=== PATIENT | male | born 1945 | race Caucasian/White ===

== ENCOUNTER 2023-04-08 20:21 | Emergency (ER) | payer MEDICARE, OTHER, SELFPAY ==
[2023-04-08 20:29] VITALS: BP 121/75; PULSE 76; RESP 18; TEMP 36.6; O2SAT 99; BMI 31.1
--- NOTE | 2023-04-08 20:47 | ED_ITS ---
HPI - General Adult General Chief complaint: Fall/Minor Trauma Stated complaint: Fell down the stairs Time Seen by Provider: 04/08/23 20:41 Source: patient Mode of arrival: ambulatory Limitations: no limitations History of Present Illness HPI narrative: 77-year-old male presenting today with face pain. Approximately 28 hours ago the patient missed a step going down the stairs and fell face forward. He denies headache, confusion. Denied losing consciousness yesterday. He presents today because the swelling around his eye has gotten worse. He denies neck or back pain that is acute. No changes in his vision, no ringing in his ears. Denies any focal neurologic deficits. He takes a daily aspirin, no other blood thinners. Related Data Home Medications Medication Instructions Recorded Confirmed aspirin 325 mg tablet,delayed 325 mg PO DAILY 04/08/23 04/08/23 release (Aspir-Tangela) atorvastatin 10 mg tablet 10 mg PO QPM 04/08/23 04/08/23 bupropion HCl 150 mg 24 hr tablet, 150 mg PO DAILY 04/08/23 04/08/23 extended release carvedilol 12.5 mg tablet 12.5 mg PO BID 04/08/23 04/08/23 cyclophosphamide 50 mg capsule 50 mg PO DAILY 04/08/23 04/08/23 glipizide 5 mg tablet, extended 5 mg PO DAILY 04/08/23 04/08/23 release 24 hr losartan 25 mg tablet 25 mg PO DAILY 04/08/23 04/08/23 melatonin 3 mg capsule 3 mg PO DAILY 04/08/23 04/08/23 metformin 500 mg tablet 500 mg PO BID 04/08/23 04/08/23 ondansetron HCl 8 mg tablet 8 mg PO DAILY 04/08/23 04/08/23 pantoprazole 40 mg tablet,delayed 40 mg PO DAILY 04/08/23 04/08/23 release prednisolone 1 %-moxifloxacin 0.5 drp ophthalmic (eye) 04/08/23 %-bromfenac 0.075 % eye drops susp spironolactone 25 mg tablet 25 mg PO DAILY 04/08/23 04/08/23 torsemide 20 mg tablet 40 mg PO DAILY 04/08/23 04/08/23 trazodone 50 mg tablet 50 mg PO QHS PRN 04/08/23 04/08/23 Allergies Allergy/AdvReac Type Severity Reaction Status Date / Time contrast dye Allergy Uncoded 04/08/23 20:37 Review of Systems Status of ROS: Reports: 10 or more systems reviewed and unremarkable except as noted in History and below [facility] Social History Smoking Status: Former smoker Do you use any of these nicotine containing products: None How often do you have a drink containing alcohol: 2-4 times a month How often do you have six or more drinks on one occasion: Never AUDIT-C Alcohol total score: 2 Non-prescribed substance use: denies use Exam Narrative: Exam Narrative: Well-nourished well-developed patient in no acute distress. Alert and oriented x3. Answers questions appropriately. Mood and affect are appropriate. Thoughts are goal oriented and rational. No tangential or magical thinking noted. Patient speaks in full sentences without needing to catch his breath. Speech is not slurred or pressured. GCS is 15. HEENT: Normocephalic. Pupils are equally round reactive to light. Extraocular muscles are intact. No pain with extraocular movement. Conjunctivae are moist without any icterus noted. Moist mucous membranes. Posterior pharynx is normal. Neck is soft without any lymphadenopathy or thyromegaly. No masses are appreciated. No evidence of trauma to the inside of the mouth. Patient has a large hematoma surrounding the right eye. He has bruising across the bridge of the nose that is very subtle and goes into the right side area below the eye again, this is quite subtle. There is no septal hematoma noted. No drainage from the nose. Hematoma over of the right forehead with very superficial abrasion. Cardiovascular: Heart is regular rate and rhythm S1 and S2 are present without any murmurs. Lungs: Clear to auscultation bilaterally no wheezes rhonchi or rales are appreciated. Patient takes deep breaths without any discomfort. Abdomen: Soft and nontender nondistended with normal bowel sounds. No guarding or rebound. Extremities: Bilateral lower extremities are without edema. Normal DP and PT pulses. Skin: Well perfused without any obvious rashes. He has scattered ecchymosis over the upper extremities. Very small ecchymosis over both knees. Back: Normal appearance. No tenderness to palpation over the cervical, thoracic or lumbar spine. Full range of motion at the neck with flexion, extension, side bending or rotation without pain. Const: Vital Signs, click to edit/add: Vital Signs - 24 hr 04/08/23 20:29 Temperature 98 F Pulse Rate [Pulse Oximeter] 76 Respiratory Rate 18 Blood Pressure [Ri ght Upper Arm] 121/75 Pulse Oximetry 99 Oxygen Delivery Me thod Room Air Course Course ED Course: Proceeded with facial and head CT: Unremarkable for any acute changes. Vital Signs Vital signs: Initial Vital Signs Temperature 98 F 04/08/23 20:29 Temperature Source Temporal Artery Scan 04/08/23 20:29 Pulse Rate 76 04/08/23 20:29 Respiratory Rate 18 04/08/23 20:29 Blood Pressure 121/75 04/08/23 20:29 Blood Pressure Mean 90 04/08/23 20:29 Blood Pressure Position Sitting 04/08/23 20:29 Pulse Oximetry 99 04/08/23 20:29 Oxygen Delivery Method Room Air 04/08/23 20:29 Vital Signs Temperature 98 F 04/08/23 20:29 Pulse Rate 76 04/08/23 20:29 Respiratory Rate 18 04/08/23 20:29 Blood Pressure 121/75 04/08/23 20:29 Pulse Oximetry 99 04/08/23 20:29 Oxygen Delivery Method Room Air 04/08/23 20:29 Temperature 98 F 04/08/23 20:29 Pulse Rate 76 04/08/23 20:29 Respiratory Rate 18 04/08/23 20:29 Blood Pressure 121/75 04/08/23 20:29 Pulse Oximetry 99 04/08/23 20:29 Oxygen Delivery Method Room Air 04/08/23 20:29 Medical Decision Making MDM Narrative Medical decision making narrative: 77-year-old male status post fall with facial hematoma, no evidence of underlying fractures or brain injury. We discussed symptomatic treatment, progression of facial ecchymosis and hematoma, and reasons for follow-up. Imaging Data CT facial bones: Attestation: I have reviewed the pertinent imaging results. Radiologist's impression: CT head and maxillofacial without contrast. Permanently recorded images are archived. COMPARISON: None. FINDINGS: CSF spaces: Within normal limits for age. Brain parenchyma and extra-axial spaces: Mild global brain parenchymal volume loss. Mild areas of bilateral supratentorial white matter hypoattenuation, consistent with chronic small vessel ischemic disease. The zurita-white differentiation is normal. No sign of mass, hemorrhage, or midline shift. No extra-axial fluid collection. Bones: No fractures or bone lesions. Specifically the nasal bones, temporomandibular joints, maxilla and mandible appear intact. No skull fracture. Multilevel degenerative changes of the cervical spine. Orbits and globes: The globes are intact. No intraorbital hemorrhage or emphysema. Sinuses: The visualized paranasal sinuses demonstrate no acute or significant findings. The mastoid air cells are clear. Soft tissues: Small right parietal scalp lipoma. Right frontal scalp and periorbital soft tissue hematoma. IMPRESSION: No evidence of an acute intracranial abnormality. Right frontal scalp and periorbital soft tissue hematoma. No underlying skull or maxillofacial fracture. Brain parenchyma findings consistent with chronic small vessel ischemic disease on a background of age-related involutional change. Discharge Plan Discharge Clinical Impression: Blunt trauma of face, Facial hematoma Patient Disposition: Home, Self-Care Condition: Stable Additional Instructions: Ice face as needed for comfort and swelling-no longer than 20 minutes at a time. Do not apply ice directly to skin. Expect hematomas to stay for several months before they are completely healed. Prescriptions: No Action metformin 500 mg tablet 500 mg PO BID carvedilol 12.5 mg tablet 12.5 mg PO BID torsemide 20 mg tablet 40 mg PO DAILY atorvastatin 10 mg tablet 10 mg PO QPM glipizide 5 mg tablet extended release 24hr 5 mg PO DAILY spironolactone 25 mg tablet 25 mg PO DAILY pantoprazole 40 mg tablet,delayed release (DR/EC) 40 mg PO DAILY losartan 25 mg tablet 25 mg PO DAILY bupropion HCl 150 mg tablet extended release 24 hr 150 mg PO DAILY aspirin [Aspir-Tangela] 325 mg tablet,delayed release (DR/EC) 325 mg PO DAILY cyclophosphamide 50 mg capsule 50 mg PO DAILY melatonin 3 mg capsule 3 mg PO DAILY ondansetron HCl 8 mg tablet 8 mg PO DAILY [id number]-nvsrkaa 1-0.5-0.075 % drops,suspension ophthalmic (eye) trazodone 50 mg tablet 50 mg PO QHS PRN Follow Up/Referrals: Provider,Not a Local [Primary Care Provider] - Stand Alone Forms: [facility] Info Instructions
--- NOTE | 2023-04-08 20:47 | CRLHL7_ITS ---
For Patients: As a result of the Century Cures Act, medical imaging exams and procedure reports are released immediately into your electronic medical record. You may view this report before your referring provider. If you have questions, please contact your health care provider. INDICATION: Fell, hit face TECHNIQUE: CT head and maxillofacial without contrast. Permanently recorded images are archived. COMPARISON: None. FINDINGS: CSF spaces: Within normal limits for age. Brain parenchyma and extra-axial spaces: Mild global brain parenchymal volume loss. Mild areas of bilateral supratentorial white matter hypoattenuation, consistent with chronic small vessel ischemic disease. The zurita-white differentiation is normal. No sign of mass, hemorrhage, or midline shift. No extra-axial fluid collection. Bones: No fractures or bone lesions. Specifically the nasal bones, temporomandibular joints, maxilla and mandible appear intact. No skull fracture. Multilevel degenerative changes of the cervical spine. Orbits and globes: The globes are intact. No intraorbital hemorrhage or emphysema. Sinuses: The visualized paranasal sinuses demonstrate no acute or significant findings. The mastoid air cells are clear. Soft tissues: Small right parietal scalp lipoma. Right frontal scalp and periorbital soft tissue hematoma. IMPRESSION: No evidence of an acute intracranial abnormality. Right frontal scalp and periorbital soft tissue hematoma. No underlying skull or maxillofacial fracture. Brain parenchyma findings consistent with chronic small vessel ischemic disease on a background of age-related involutional change. Please note that all CT scans at this facility use dose modulation, iterative reconstruction, and/or weight-based dosing when appropriate to reduce radiation dose to as low as reasonably achievable. Dictated by Garret Parada MD @ 04/08/2023 10:25:53 PM (Electronically Signed)
== END 2023-04-08 23:02 | disposition home or self-care (01) ==
PROVIDERS: Emergency Provider Family Medicine
DX: S00.93XA Contusion of unspecified part of head, initial encounter (principal); W10.9XXA Fall (on) (from) unspecified stairs and steps, initial encounter
CPT/HCPCS: 70450; 70486; 99284

== ENCOUNTER 2023-06-30 17:32 | Emergency (ER) | payer MEDICARE, OTHER, SELFPAY ==
[2023-06-30 18:07] VITALS: BP 134/87; PULSE 67; RESP 16; TEMP 36.7; O2SAT 96; BMI 30.8
--- NOTE | 2023-06-30 18:18 | CRLHL7_ITS ---
For Patients: As a result of the Century Cures Act, medical imaging exams and procedure reports are released immediately into your electronic medical record. You may view this report before your referring provider. If you have questions, please contact your health care provider. INDICATION: Fall, head injury, history of cutaneous melanoma. TECHNIQUE: Noncontrast CT of the head with multiplanar reformat in bone and soft tissue algorithms. COMPARISON: None available. FINDINGS: No acute intracranial hemorrhage. The zurita-white matter interface is preserved. No evidence of ventricular obstruction. Mild diffuse parenchymal volume loss. Small left frontal scalp laceration. No radiopaque foreign body or underlying calvarial fracture. Evidence of prior cataract surgery. Paranasal sinuses and mastoid air cells are predominantly clear. IMPRESSION: 1. No acute intracranial abnormality. 2. Small left frontal scalp laceration. No radiopaque foreign body or underlying calvarial fracture Please note that all CT scans at this facility use dose modulation, iterative reconstruction, and/or weight-based dosing when appropriate to reduce radiation dose to as low as reasonably achievable. Dictated by Yung Whitlock MD @ 06/30/2023 7:14:39 PM (Electronically Signed)
--- NOTE | 2023-06-30 18:24 | ED_ITS ---
HPI - Fall General Time Seen by Provider: 18:24 Date Seen: 06/30/23 Chief Complaint: Fall/Minor Trauma Stated Complaint: Fall, head lac Time Seen by Provider: 06/30/23 18:23 Source: patient and RN notes reviewed Mode of arrival: ambulatory Limitations: no limitations History of Present Illness HPI Narrative: Patient is an 78-year-old male that comes in accompanied by family. He fell in the kitchen, hitting his left side of his head in the parietal area on the drawer. His daughter notes that she feels he either caught his foot on the rug or actually tripped on his own foot. He denies any syncopal or presyncopal issues. He had no chest pain, was not passing out. He did not lose consciousness, denies headache, denies any significant pain of his head. He is mildly sore in the area but only mildly so. No neck or back pain, difficulty breathing, no chest wall pain, no arm or leg pain. Nothing else was injured. He did bleed on this left side of his head, bleeding has stopped at this time. He and his both just recently had there tetanus vaccines updated. 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 They report that his hemoglobin recently was low, platelet sometimes are low but is not had any bleeding complications. Is not on any blood thinner outside of an aspirin. MD complaint: fall Related Data Home Medications Medication Instructions Recorded Confirmed aspirin 325 mg tablet,delayed 325 mg PO DAILY 04/08/23 04/08/23 release (Aspir-Tangela) atorvastatin 10 mg tablet 10 mg PO QPM 04/08/23 04/08/23 bupropion HCl 150 mg 24 hr tablet, 150 mg PO DAILY 04/08/23 04/08/23 extended release carvedilol 12.5 mg tablet 12.5 mg PO BID 04/08/23 04/08/23 cyclophosphamide 50 mg capsule 50 mg PO DAILY 04/08/23 04/08/23 glipizide 5 mg tablet, extended 5 mg PO DAILY 04/08/23 04/08/23 release 24 hr losartan 25 mg tablet 25 mg PO DAILY 04/08/23 04/08/23 melatonin 3 mg capsule 3 mg PO DAILY 04/08/23 04/08/23 metformin 500 mg tablet 500 mg PO BID 04/08/23 04/08/23 ondansetron HCl 8 mg tablet 8 mg PO DAILY 04/08/23 04/08/23 pantoprazole 40 mg tablet,delayed 40 mg PO DAILY 04/08/23 04/08/23 release prednisolone 1 %-moxifloxacin 0.5 drp ophthalmic (eye) 04/08/23 %-bromfenac 0.075 % eye drops susp spironolactone 25 mg tablet 25 mg PO DAILY 04/08/23 04/08/23 torsemide 20 mg tablet 40 mg PO DAILY 04/08/23 04/08/23 trazodone 50 mg tablet 50 mg PO QHS PRN 04/08/23 04/08/23 Allergies Allergy/AdvReac Type Severity Reaction Status Date / Time contrast dye Allergy Uncoded 04/08/23 20:37 Review of Systems Status of ROS: Reports: 6 or more systems reviewed and unremarkable except as noted in History and below [facility] Social History Smoking Status: Former smoker Do you use any of these nicotine containing products: None How often do you have a drink containing alcohol: 2-4 times a month How often do you have six or more drinks on one occasion: Never AUDIT-C Alcohol total score: 2 Non-prescribed substance use: denies use Exam Const: Vital Signs, click to edit/add: Vital Signs - 24 hr 06/30/23 18:07 Temperature 98.1 F Pulse Rate [Right Pulse Oximeter] 67 Respiratory Rate 16 Blood Pressure [Ri ght Upper Arm] 134/87 Pulse Oximetry 96 Oxygen Delivery Me thod Room Air Patient is alert, interactive, no apparent distress, sitting up in a wheelchair. He has dry blood on the left side of his scalp. Cannot see exactly where the wound is, no active bleeding. External ears normal, face is atraumatic, speaking in complete sentences. No midline tenderness over his neck, neck is supple without any pain on range of motion. Lungs are clear, good air entry no wheezing or crackles noted. CV regular rate and rhythm, no murmur, normal S1-S2 no S3-S4. Abdomen is soft, states it is not tender. He moves his arms, uses legs, no focal weakness noted. He states there is no pain within his extremities. Documenting provider has reviewed patient's vital signs: yes Course Course ED Course: Patient will have CT imaging of his head to ensure no fracture or acute intracranial abnormality. He is currently hemodynamically stable, no active bleeding. Tetanus is up-to-date. When he returns from a CT imaging, lab staff clean this left side of his head, see where the wound is that he might need to clean. It is not apparent exactly where the wound is at this time with all the dried blood. Reevaluation(s) Time of Reevaluation #1: 20:11 Reevaluation #1: Completed laceration repair. Did review with him the negative head CT imaging. He has a small little stellate laceration that is on the left parietal area. More centrally in top of the head, small area of abraded skin with there is a little deficit that is oozing. About 3.5 mL of the 5 mL of 1% lidocaine with epinephrine that was drawn up was used for local infiltration. There is good white need of the tissue, did help with hemostasis. 3 simple interrupted sutures over the small stellate area were placed, total wound length was likely just under a cm. There was good approximation of wound and hemostasis. One overlying suture was placed where there was little skin deficit to try to get some of the tissue together. This did give better approximation of the tissue deficit and seem to bring hemostasis about. Patient tolerated this well, no complications. Total of 4 simple interrupted sutures were placed using 4-0 Prolene. Will have nursing staff put a bandage on and prepare for discharge. Tetanus is up-to-date. Vital Signs Vital signs: Initial Vital Signs Temperature 98.1 F 06/30/23 18:07 Temperature Source Temporal Artery Scan 06/30/23 18:07 Pulse Rate 67 06/30/23 18:07 Pulse Rhythm Regular 06/30/23 18:07 Respiratory Rate 16 06/30/23 18:07 Blood Pressure 134/87 06/30/23 18:07 Blood Pressure Mean 102 06/30/23 18:07 Blood Pressure Position Sitting 06/30/23 18:07 Pulse Oximetry 96 06/30/23 18:07 Oxygen Delivery Method Room Air 06/30/23 18:07 Vital Signs Temperature 98.1 F 06/30/23 18:07 Pulse Rate 67 06/30/23 18:07 Respiratory Rate 16 06/30/23 18:07 Blood Pressure 134/87 06/30/23 18:07 Pulse Oximetry 96 06/30/23 18:07 Oxygen Delivery Method Room Air 06/30/23 18:07 Temperature 98.1 F 06/30/23 18:07 Pulse Rate 67 06/30/23 18:07 Respiratory Rate 16 06/30/23 18:07 Blood Pressure 134/87 06/30/23 18:07 Pulse Oximetry 96 06/30/23 18:07 Oxygen Delivery Method Room Air 06/30/23 18:07 MDM - Fall Imaging Data CT scan - head: Attestation: I have reviewed the pertinent imaging results. Radiologist's impression: Patient: MOHSEN GAITAN Facility:?[facility] Patient ID:?[id number] Site Patient ID:?[id number]. Site :?[id number] Study:?CT Head WO-06/30/2023 6:39:25 PM Ordering Physician:Panfilo Nolasco Final Report: INDICATION: Fall, head injury, history of cutaneous melanoma. TECHNIQUE: Noncontrast CT of the head with multiplanar reformat in bone and soft tissue algorithms. COMPARISON: None available. FINDINGS: No acute intracranial hemorrhage. The zurita-white matter interface is preserved. No evidence of ventricular obstruction. Mild diffuse parenchymal volume loss. Small left frontal scalp laceration. No radiopaque foreign body or underlying calvarial fracture. Evidence of prior cataract surgery. Paranasal sinuses and mastoid air cells are predominantly clear. IMPRESSION: 1. No acute intracranial abnormality. 2. Small left frontal scalp laceration. No radiopaque foreign body or underlying calvarial fracture Please note that all CT scans at this facility use dose modulation, iterative reconstruction, and/or weight-based dosing when appropriate to reduce radiation dose to as low as reasonably achievable. Dictated by Yung Whitlock MD @ 06/30/2023 7:14:39 PM ----- ADDENDUM ----- Addendum : Please note that comparison study is available dated 04/08/2023. Mild diffuse parenchymal volume loss is unchanged. Dictated by Yung Whitlock MD @ Jun 30 2023 7:15PM (Electronic Signature) Discharge Plan Discharge Clinical Impression: Fall Qualifiers: Encounter type: initial encounter Qualified Code(s): W19.XXXA - Unspecified fall, initial encounter Laceration of scalp Qualifiers: Encounter type: initial encounter Qualified Code(s): S01.01XA - Laceration without foreign body of scalp, initial encounter Patient Disposition: Home, Self-Care Condition: Stable Instructions: Care For Your Stitches (DC), Laceration (ED), Fall Prevention for Older Adults (ED) Additional Instructions: May shower but be careful to not disrupt the stitches with washing or combing. Stitches need to come out in about 1 weeks time, seek clinic appointment for wound assessment for suture removal. If there is concern for infection with increasing redness, swelling, purulent discharge or associated fever with the skin changes, do need to be re-evaluated. Can use a little bacitracin to the stitches and bandages until sutures are removed. Activity Level: Activity as Tolerated Prescriptions: No Action metformin 500 mg tablet 500 mg PO BID carvedilol 12.5 mg tablet 12.5 mg PO BID torsemide 20 mg tablet 40 mg PO DAILY atorvastatin 10 mg tablet 10 mg PO QPM glipizide 5 mg tablet extended release 24hr 5 mg PO DAILY spironolactone 25 mg tablet 25 mg PO DAILY pantoprazole 40 mg tablet,delayed release (DR/EC) 40 mg PO DAILY losartan 25 mg tablet 25 mg PO DAILY bupropion HCl 150 mg tablet extended release 24 hr 150 mg PO DAILY aspirin [Aspir-Tangela] 325 mg tablet,delayed release (DR/EC) 325 mg PO DAILY cyclophosphamide 50 mg capsule 50 mg PO DAILY melatonin 3 mg capsule 3 mg PO DAILY ondansetron HCl 8 mg tablet 8 mg PO DAILY [id number]-qtzwrrb 1-0.5-0.075 % drops,suspension ophthalmic (eye) trazodone 50 mg tablet 50 mg PO QHS PRN Follow Up/Referrals: Provider,Not a Local [Primary Care Provider] - Stand Alone Forms: [employer] Info Instructions
[2023-06-30 20:30] VITALS: BP 140/81; PULSE 59; O2SAT 97
--- NOTE | 2023-06-30 20:44 | PC.NURSE ---
Written and verbal D/C per MD and RN. Dsg C/D/I top of head. Bacitracin and bandaides providewd to family. All c
== END 2023-06-30 20:50 | disposition home or self-care (01) ==
PROVIDERS: Emergency Provider Family Medicine
DX: S01.01XA Laceration without foreign body of scalp, initial encounter (principal); W01.0XXA Fall on same level from slipping, tripping and stumbling without subsequent striking against object, initial encounter
CPT/HCPCS: 12001; 70450; 99283

== ENCOUNTER 2024-11-20 10:01 | Emergency (ER) | payer MEDICARE, OTHER, SELFPAY ==
[2024-11-20 10:35] VITALS: BP 109/63; PULSE 65; RESP 18; TEMP 36.6; O2SAT 97; BMI 31.7
--- NOTE | 2024-11-20 12:09 | ED.GENADULT ---
HPI - General Adult General Time Seen by Provider: 12:09 <Constance Espinoza MD - Last Filed: 11/20/24 12:10> Date Seen: 11/20/24 <Constance Espinoza MD - Last Filed: 11/20/24 12:10> Chief complaint: Extremity Pain/Injury, Lower <Constance Espinoza MD - Last Filed: 11/20/24 12:10> Stated complaint: uncontrollable left leg- fell <Constance Espinoza MD - Last Filed: 11/20/24 12:10> Time Seen by Provider: 11/20/24 11:01 <Constance Espinoza MD - Last Filed: 11/20/24 12:10> Source: patient and RN notes reviewed <Constance Espinoza MD - Last Filed: 11/20/24 12:10> Mode of arrival: ambulatory <Constance Espinoza MD - Last Filed: 11/20/24 12:10> Limitations: no limitations <Constance Espinoza MD - Last Filed: 11/20/24 12:10> History of Present Illness HPI narrative: Patient reports that for the past several weeks he has noted weakness with shaking in right knee when he gets up from a sitting position and sometimes noted when in standing position. Denies pain. This happened today and resulted in a fall. 79-year-old man presenting to the emergency department with concern of shaking in his right leg. 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 Had a pretty normal lab draw about 3 weeks ago and is due for a follow-up appointment in 1 week. Over period of months has been having episodes where he will go to get out of a chair and the right knee/leg will start shaking and then he can feel weaker in lightheaded generally in his body. This can admittedly occur independent of stress on his legs but maybe when he standing and he knows he has to go sit down. Today however seemed to then also involve his left leg and he ended up falling. Knocked his right elbow but otherwise no injuries were sustained. He is not anticoagulated with anything other than aspirin. Underlying history of diabetes as well. No history of seizures. Not complaining of any headaches. Does not describe postictal behavior. No underlying neuromuscular disorders otherwise. No Parkinson's. Says this is just weird and does not know where to go from here. 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 Denies any exposures. Denies any pain in the knee otherwise. <Marcio Dominguez MD - Last Filed: 11/24/24 11:52> Related Data Home medications: Home Medications ?Medication ?Instructions ?Recorded ?Confirmed atorvastatin 10 mg tablet 10 mg PO QPM 04/08/23 04/08/23 carvedilol 12.5 mg tablet 12.5 mg PO BID 04/08/23 11/20/24 cyclophosphamide 50 mg capsule 50 mg PO DAILY 04/08/23 11/20/24 glipizide 5 mg tablet, extended 5 mg PO DAILY 04/08/23 11/20/24 release 24 hr losartan 25 mg tablet 25 mg PO DAILY 04/08/23 11/20/24 melatonin 3 mg capsule 3 mg PO DAILY 04/08/23 11/20/24 Held on 11/20/24. Instructions: not taking metformin 500 mg tablet 500 mg PO BID 04/08/23 11/20/24 ondansetron HCl 8 mg tablet 8 mg PO DAILY 04/08/23 11/20/24 pantoprazole 40 mg tablet,delayed 40 mg PO DAILY 04/08/23 11/20/24 release prednisolone 1 %-moxifloxacin 0.5 drp ophthalmic (eye) 04/08/23 %-bromfenac 0.075 % eye drops susp torsemide 20 mg tablet 40 mg PO DAILY 04/08/23 11/20/24 eplerenone 25 mg tablet 25 mg PO DAILY 11/20/24 11/20/24 <Constance Espinoza MD - Last Filed: 11/20/24 12:10> Allergies/adverse reactions: Allergies Allergy/AdvReac Type Severity Reaction Status Date / Time iodine Allergy Rash Verified 11/20/24 10:31 <Constance Espinoza MD - Last Filed: 11/20/24 12:10> Review of Systems Status of ROS: Reports: 6 or more systems reviewed and unremarkable except as noted in History and below <Marcio Dominguez MD - Last Filed: 11/24/24 11:52> PFS PFSH Social History: Social History Smoking Status: Former smoker Do you use any of these nicotine containing products: None How often do you have a drink containing alcohol: 2-4 times a month How often do you have six or more drinks on one occasion: Never AUDIT-C Alcohol total score: 2 Non-prescribed substance use: denies use <Constance Espinoza MD - Last Filed: 11/20/24 12:10> Exam Narrative: Exam Narrative: Very pleasant. Speaking fluidly easily. Breathing easily. Lungs are clear. Heart in regular rate and rhythm without murmur rub or gallop. Distant. Abdomen is overweight. Moving all extremities without difficulty. There is mild lower extremity pitting edema. Is well-perfused. Examination of the right knee is without particular swelling other than what looks like maybe a lipomatous swelling over the patella. No laxity. <Marcio Dominguez MD - Last Filed: 11/24/24 11:52> Const: Vital Signs, click to edit/add: Vital Signs - 24 hr 11/20/24 10:35 11/20/24 12:53 11/20/24 13:30 Temperature 97.9 F Pulse Rate 67 Pulse Rate [Pulse Oximeter] 65 Pulse Rate [orthos tatic lying Pulse Oximeter] 57 L Pulse Rate [orthos tatic sitting] 64 Pulse Rate [orthos tatic standing Pul se Oximeter] 82 Respiratory Rate 18 Blood Pressure Blood Pressure [Ri ght Upper Arm] 109/63 Blood Pressure [or thostatic lying Le ft Arm] 128/75 Blood Pressure [or thostatic sitting Left Arm] 124/73 Blood Pressure [or thostatic standing Left Arm] 117/74 Pulse Oximetry 97 97 Oxygen Delivery Me thod Room Air 11/20/24 14:31 11/20/24 14:32 Temperature Pulse Rate 66 66 Pulse Rate [Pulse Oximeter] Pulse Rate [orthos tatic lying Pulse Oximeter] Pulse Rate [orthos tatic sitting] Pulse Rate [orthos tatic standing Pul se Oximeter] Respiratory Rate Blood Pressure 136/74 Blood Pressure [Ri ght Upper Arm] Blood Pressure [or thostatic lying Le ft Arm] Blood Pressure [or thostatic sitting Left Arm] Blood Pressure [or thostatic standing Left Arm] Pulse Oximetry 98 98 Oxygen Delivery Me thod <Constance Espinoza MD - Last Filed: 11/20/24 12:10> Vital Signs, click to edit/add: Vital Signs - 24 hr 11/20/24 10:35 11/20/24 12:53 11/20/24 13:30 Temperature 97.9 F Pulse Rate 67 Pulse Rate [Pulse Oximeter] 65 Pulse Rate [orthos tatic lying Pulse Oximeter] 57 L Pulse Rate [orthos tatic sitting] 64 Pulse Rate [orthos tatic standing Pul se Oximeter] 82 Respiratory Rate 18 Blood Pressure Blood Pressure [Ri ght Upper Arm] 109/63 Blood Pressure [or thostatic lying Le ft Arm] 128/75 Blood Pressure [or thostatic sitting Left Arm] 124/73 Blood Pressure [or thostatic standing Left Arm] 117/74 Pulse Oximetry 97 97 Oxygen Delivery Me thod Room Air 11/20/24 14:31 11/20/24 14:32 Temperature Pulse Rate 66 66 Pulse Rate [Pulse Oximeter] Pulse Rate [orthos tatic lying Pulse Oximeter] Pulse Rate [orthos tatic sitting] Pulse Rate [orthos tatic standing Pul se Oximeter] Respiratory Rate Blood Pressure 136/74 Blood Pressure [Ri ght Upper Arm] Blood Pressure [or thostatic lying Le ft Arm] Blood Pressure [or thostatic sitting Left Arm] Blood Pressure [or thostatic standing Left Arm] Pulse Oximetry 98 98 Oxygen Delivery Me thod <Marcio Dominguez MD - Last Filed: 11/24/24 11:52> Documenting provider has reviewed patient's vital signs: yes <Marcio Dominguez MD - Last Filed: 11/24/24 11:52> Course Vital Signs Vital signs: Initial Vital Signs Temperature 97.9 F 11/20/24 10:35 Temperature Source Temporal Artery Scan 11/20/24 10:35 Pulse Rate 65 11/20/24 10:35 Respiratory Rate 18 11/20/24 10:35 Blood Pressure 109/63 11/20/24 10:35 Blood Pressure Mean 78 11/20/24 10:35 Pulse Oximetry 97 11/20/24 10:35 Oxygen Delivery Method Room Air 11/20/24 10:35 Vital Signs Temperature 97.9 F 11/20/24 10:35 Pulse Rate 65 11/20/24 10:35 Respiratory Rate 18 11/20/24 10:35 Blood Pressure 109/63 11/20/24 10:35 Pulse Oximetry 97 11/20/24 10:35 Oxygen Delivery Method Room Air 11/20/24 10:35 Temperature 97.9 F 11/20/24 10:35 Pulse Rate 66 11/20/24 14:32 Respiratory Rate 18 11/20/24 10:35 Blood Pressure 136/74 11/20/24 14:31 Pulse Oximetry 98 11/20/24 14:32 Oxygen Delivery Method Room Air 11/20/24 10:35 <Constance Espinoza MD - Last Filed: 11/20/24 12:10> Initial Vital Signs Temperature 97.9 F 11/20/24 10:35 Temperature Source Temporal Artery Scan 11/20/24 10:35 Pulse Rate 65 11/20/24 10:35 Respiratory Rate 18 11/20/24 10:35 Blood Pressure 109/63 11/20/24 10:35 Blood Pressure Mean 78 11/20/24 10:35 Pulse Oximetry 97 11/20/24 10:35 Oxygen Delivery Method Room Air 11/20/24 10:35 Vital Signs Temperature 97.9 F 11/20/24 10:35 Pulse Rate 65 11/20/24 10:35 Respiratory Rate 18 11/20/24 10:35 Blood Pressure 109/63 11/20/24 10:35 Pulse Oximetry 97 11/20/24 10:35 Oxygen Delivery Method Room Air 11/20/24 10:35 Temperature 97.9 F 11/20/24 10:35 Pulse Rate 66 11/20/24 14:32 Respiratory Rate 18 11/20/24 10:35 Blood Pressure 136/74 11/20/24 14:31 Pulse Oximetry 98 11/20/24 14:32 Oxygen Delivery Method Room Air 11/20/24 10:35 <Marcio Dominguez MD - Last Filed: 11/24/24 11:52> Medications Administered Medications: Discontinued Medications Generic Name Dose Route Start Last Admin Trade Name Freq PRN Reason Stop Dose Admin Diphenhydramine HCl 50 mg 11/20/24 14:02 11/20/24 14:15 Diphenhydramine 50 Mg/Ml Inj IVP 11/20/24 14:03 50 mg ONCE ONE Administration Hydrocortisone Sodium Succinate 200 mg 11/20/24 14:02 11/20/24 14:32 Hydrocortisone Sod Succinate 50 Mg/Ml Inj IVP 11/20/24 14:03 200 mg ONCE ONE Administration Sodium Chloride 500 mls @ 500 mls/hr 11/20/24 13:16 11/20/24 14:32 0.9 % Sodium Chloride 500 Ml IV 11/20/24 14:15 Infused .Q1H ONE Infusion <Constance Espinoza MD - Last Filed: 11/20/24 12:10> Discontinued Medications Generic Name Dose Route Start Last Admin Trade Name Freq PRN Reason Stop Dose Admin Diphenhydramine HCl 50 mg 11/20/24 14:02 11/20/24 14:15 Diphenhydramine 50 Mg/Ml Inj IVP 11/20/24 14:03 50 mg ONCE ONE Administration Hydrocortisone Sodium Succinate 200 mg 11/20/24 14:02 11/20/24 14:32 Hydrocortisone Sod Succinate 50 Mg/Ml Inj IVP 11/20/24 14:03 200 mg ONCE ONE Administration Sodium Chloride 500 mls @ 500 mls/hr 11/20/24 13:16 11/20/24 14:32 0.9 % Sodium Chloride 500 Ml IV 11/20/24 14:15 Infused .Q1H ONE Infusion <Marcio Dominguez MD - Last Filed: 11/24/24 11:52> Medical Decision Making MDM Narrative Medical decision making narrative: One wonders if this might be simply a strange physical stress response. Partial seizure? Strange recruitment behavior. Does not seem to be an arrhythmia. No history of neuromuscular disorder or Parkinson's. Might be describing some vasovagal episode? I did discuss this case with neuro/Stroke Neuro on-call. They do have concern of potential limb shaking TIA. Recommending for orthostatics and vascular imaging of head and neck. Orthostatics were unremarkable. IV was placed. Given IV hydration. Required pre treatment for iodine allergy. INDICATION: Acute stroke. TECHNIQUE: CTA head with contrast bolus tracking, 3D angiographic rendering using maximum intensity projection (MIP) and images permanently archived. FINDINGS: There is scattered intracranial atherosclerotic disease. There is normal opacification of the intracranial vasculature. There is no large vessel occlusion. No aneurysm is identified. IMPRESSION: No large vessel occlusion. Please note that all CT scans at this facility use dose modulation, iterative reconstruction, and/or weight-based dosing when appropriate to reduce radiation dose to as low as reasonably achievable. Dictated by Roosevelt Card MD @ 11/21/2024 9:51:56 AM INDICATION: Acute stroke. TECHNIQUE: CTA neck with contrast bolus tracking, 3D angiographic rendering using maximum intensity projection (MIP) and images permanently archived. FINDINGS: There is carotid atherosclerosis. There is no significant carotid artery stenosis or dissection. There is no significant vertebral artery stenosis or dissection. Indeterminate thyroid nodules are incidentally noted. Advanced degenerative changes are noted in the cervical spine. IMPRESSION: No significant carotid or vertebral artery stenosis or dissection. Please note that all CT scans at this facility use dose modulation, iterative reconstruction, and/or weight-based dosing when appropriate to reduce radiation dose to as low as reasonably achievable. Dictated by Roosevelt Card MD @ 11/21/2024 9:50:39 AM Discussed findings, or lack of, with Stroke Neuro. Doubtful TIA given absence of findings. With unusual presentation would still recommend MRI. Will be unable to do this MRI at this point. Will be attempting to arrange this as an outpatient. Actually should not require pretreatment of contrast per my later conversation with our radiology department. No further events during time in the emergency department. Looking forward to leaving the emergency department after a long visit. See patient discharge plan for further discussion Please enjoy your supper. I am placing an order for an MRI of your brain. If you choose to get this elsewhere that is certainly fine, I just can not order it. We are hoping to do an MRI of your brain with and without contrast. Of course you will require premedication again. I will place that order here today after you leave. We will contact you about scheduling this. Please discuss these episodes with your oncologist and primary care provider if they may have any further ideas as to what might be going on. Return for new and focal weakness, persistently racing heart, worsening lightheadedness, any syncopal event. <Marcio Dominguez MD - Last Filed: 11/24/24 11:52> Medical Records Medical records reviewed: Yes I reviewed the patient's medical records <Marcio Dominguez MD - Last Filed: 11/24/24 11:52> Lab Data Lab results reviewed: Yes I reviewed the patient's lab results <Marcio Dominguez MD - Last Filed: 11/24/24 11:52> Labs: Lab Results 11/20/24 11/20/24 Range/Units 13:17 13:32 Hgb 12.3 L (13.5-17.5) gm/dL INR 0.97 (0.91-1.10) POC Creatinine 1.4 H (0.6-1.3) mg/dl <Constance Espinoza MD - Last Filed: 11/20/24 12:10> Lab Results 11/20/24 11/20/24 Range/Units 13:17 13:32 Hgb 12.3 L (13.5-17.5) gm/dL INR 0.97 (0.91-1.10) POC Creatinine 1.4 H (0.6-1.3) mg/dl <Marcio Dominguez MD - Last Filed: 11/24/24 11:52> Discharge Plan Discharge Clinical Impression: Episode of shaking <Constance Espinoza MD - Last Filed: 11/20/24 12:10> Patient Disposition: Home w/ Parent or Adult <Constance Espinoza MD - Last Filed: 11/20/24 12:10> Condition: Stable <Constance Espinoza MD - Last Filed: 11/20/24 12:10> Additional Instructions: Please enjoy your supper. I am placing an order for an MRI of your brain. If you choose to get this elsewhere that is certainly fine, I just can not order it. We are hoping to do an MRI of your brain with and without contrast. Of course you will require premedication again. I will place that order here today after you leave. We will contact you about scheduling this. Please discuss these episodes with your oncologist and primary care provider if they may have any further ideas as to what might be going on. Return for new and focal weakness, persistently racing heart, worsening lightheadedness, any syncopal event. <Constance Espinoza MD - Last Filed: 11/20/24 12:10> Prescriptions: No Action metformin 500 mg tablet 500 mg PO BID carvedilol 12.5 mg tablet 12.5 mg PO BID torsemide 20 mg tablet 40 mg PO DAILY atorvastatin 10 mg tablet 10 mg PO QPM glipizide 5 mg tablet extended release 24hr 5 mg PO DAILY pantoprazole 40 mg tablet,delayed release (DR/EC) 40 mg PO DAILY losartan 25 mg tablet 25 mg PO DAILY cyclophosphamide 50 mg capsule 50 mg PO DAILY melatonin 3 mg capsule 3 mg PO DAILY ondansetron HCl 8 mg tablet 8 mg PO DAILY [id number] 1-0.5-0.075 % drops,suspension ophthalmic (eye) eplerenone 25 mg tablet 25 mg PO DAILY <Constance Espinoza MD - Last Filed: 11/20/24 12:10> Follow Up/Referrals: Provider,Not a Local [Primary Care Provider, Family Practice] <Constance Espinoza MD - Last Filed: 11/20/24 12:10> Stand Al[facility]: [facility] <Constance Espinoza MD - Last Filed: 11/20/24 12:10>
[2024-11-20 12:53] VITALS: BP 117/74; BP 124/73; BP 128/75; PULSE 57; PULSE 64; PULSE 82
--- NOTE | 2024-11-20 13:16 | CRLHL7_ITS ---
For Patients: As a result of the Century Cures Act, medical imaging exams and procedure reports are released immediately into your electronic medical record. You may view this report before your referring provider. If you have questions, please contact your health care provider. INDICATION: Acute stroke. TECHNIQUE: CTA neck with contrast bolus tracking, 3D angiographic rendering using maximum intensity projection (MIP) and images permanently archived. FINDINGS: There is carotid atherosclerosis. There is no significant carotid artery stenosis or dissection. There is no significant vertebral artery stenosis or dissection. Indeterminate thyroid nodules are incidentally noted. Advanced degenerative changes are noted in the cervical spine. IMPRESSION: No significant carotid or vertebral artery stenosis or dissection. Please note that all CT scans at this facility use dose modulation, iterative reconstruction, and/or weight-based dosing when appropriate to reduce radiation dose to as low as reasonably achievable. Dictated by Roosevelt Card MD @ 11/21/2024 9:50:39 AM (Electronically Signed)
--- NOTE | 2024-11-20 13:16 | CRLHL7_ITS ---
For Patients: As a result of the Century Cures Act, medical imaging exams and procedure reports are released immediately into your electronic medical record. You may view this report before your referring provider. If you have questions, please contact your health care provider. INDICATION: Intermittent limp shaking and light-headedness. COMPARISON: 06/30/2023 TECHNIQUE: CT of the brain / head without intravenous contrast. Multiplanar axial, coronal, and sagittal reformats were reconstructed. FINDINGS: No intracranial hemorrhage. Mild parenchymal volume loss. No acute or subacute cortically based infarct. No mass or mass effect. Normal ventricles. No skull fractures. No worrisome focal bone lesion. IMPRESSION: Mild involutional change with no acute intracranial findings. Please note that all CT scans at this facility use dose modulation, iterative reconstruction, and/or weight-based dosing when appropriate to reduce radiation dose to as low as reasonably achievable. Dictated by Fallon Penn MD @ 11/20/2024 3:47:17 PM (Electronically Signed)
--- NOTE | 2024-11-20 13:16 | CRLHL7_ITS ---
For Patients: As a result of the Century Cures Act, medical imaging exams and procedure reports are released immediately into your electronic medical record. You may view this report before your referring provider. If you have questions, please contact your health care provider. INDICATION: Acute stroke. TECHNIQUE: CTA head with contrast bolus tracking, 3D angiographic rendering using maximum intensity projection (MIP) and images permanently archived. FINDINGS: There is scattered intracranial atherosclerotic disease. There is normal opacification of the intracranial vasculature. There is no large vessel occlusion. No aneurysm is identified. IMPRESSION: No large vessel occlusion. Please note that all CT scans at this facility use dose modulation, iterative reconstruction, and/or weight-based dosing when appropriate to reduce radiation dose to as low as reasonably achievable. Dictated by Roosevelt Card MD @ 11/21/2024 9:51:56 AM (Electronically Signed)
[2024-11-20 13:30] VITALS: PULSE 67; O2SAT 97
[2024-11-20] MEDS: 0.9 % SODIUM CHLORIDE 500 ML 500 ML IV (13:30)
[2024-11-20 13:41] LABS: Hemoglobin* 12.3 gm/dL (13.5-17.5)
[2024-11-20 13:48] LABS: Creatinine, Point-of-Care* 1.4 mg/dl (0.6-1.3)
[2024-11-20 13:57] LABS: INR 0.97 (0.91-1.10); Prothrombin Time 13.7 Seconds
[2024-11-20] MEDS: diphenhydrAMINE 50 MG/ML inj IVP (14:15)
[2024-11-20 14:31] VITALS: BP 136/74; PULSE 66; O2SAT 98
[2024-11-20 14:32] VITALS: PULSE 66; O2SAT 98
[2024-11-20] MEDS: HYDROCORTISONE SOD SUCCINATE 50 MG/ML inj 200 MG IVP (14:32)
== END 2024-11-20 18:04 | disposition home or self-care (01) ==
PROVIDERS: Emergency Provider Family Medicine
DX: R25.8 Other abnormal involuntary movements (principal); R53.1 Weakness; R42 Dizziness and giddiness; E11.9 Type 2 diabetes mellitus without complications; Z79.84 Long term (current) use of oral hypoglycemic drugs; Z79.01 Long term (current) use of anticoagulants; Z87.891 Personal history of nicotine dependence
CPT/HCPCS: 36415; 70450; 70496; 70498; 82565; 85018; 85610; 96374; 96375; 99284; 99285; J1200; J1720; J7030; Q9967

== ENCOUNTER 2024-12-02 09:32 | Outpatient (CLI) | payer MEDICARE, OTHER, SELFPAY ==
--- NOTE | 2024-12-02 10:15 | CRLHL7_ITS ---
For Patients: As a result of the Cures Act, medical imaging exams and procedure reports are released immediately into your electronic medical record. You may view this report before your referring provider. If you have questions, please contact your health care provider. Indication: Limb shaking. Near-syncope. Technique: Multiplanar, multisequence MRI of the brain was performed without intravenous contrast. Comparison: CT head 11/20/2024. Findings: Slight thinning of the corpus callosum. The pituitary gland and clivus appear intact. Moderate degenerative change visualized upper cervical spine. There is no restricted diffusion. No intracranial hemorrhage. The ventricles are proportionate to the cerebral sulci. The 4th ventricle appears midline. The basal cisterns appear patent. No abnormal extra-axial fluid collection identified. Moderate parenchymal volume loss. Mild T2 FLAIR hyperintense foci within the subcortical and periventricular white matter, favored to represent chronic ischemic microvascular disease. There is no intracranial mass, abnormal mass-effect or midline shift identified. Major intracranial vascular flow voids appear grossly intact. Thinning of the ocular lenses. Impression: 1. No acute intracranial process. 2. Moderate parenchymal volume loss with mild chronic ischemic microvascular disease. Dictated by Corwin Mackey MD @ 12/02/2024 3:11:53 PM (Electronically Signed)
== END 2024-12-02 09:33 | disposition home or self-care (01) ==
PROVIDERS: Visit Provider Family Medicine
DX: R25.1 Tremor, unspecified (principal); I67.82 Cerebral ischemia; R55 Syncope and collapse
CPT/HCPCS: 70551